=== PATIENT | male | born 1970 ===

== ENCOUNTER → 2020-04-11 | Outpatient (CLI) | payer SELFPAY ==
--- NOTE | 2020-04-11 13:24 | Diagnostic Imaging Report ---
PROCEDURE: CT abdomen and pelvis without contrast. TECHNIQUE: Multiple contiguous axial images were obtained through the abdomen and pelvis without the use of intravenous contrast. Auto Exposure Controls were utilized during the CT exam to meet ALARA standards for radiation dose reduction. INDICATION: Flank pain. FINDINGS: The heart size is normal. The lung bases are clear. The liver is normal in size without focal lesions. Gallbladder is unremarkable. There is no biliary ductal dilatation. Spleen is normal. Pancreas and adrenal glands are unremarkable. There are several nonobstructing stones in the left kidney. There are no stones in the right kidney. There is no evidence of obstructive uropathy. Aorta is nonaneurysmal. Bowel gas pattern is nonspecific. Appendix is normal. There is no free air. There is no ascites. There are no focal inflammatory changes. Bladder is normal. There is no pelvic mass or adenopathy. There are mild degenerative changes in the spine. IMPRESSION: Multiple nonobstructing stones in left kidney. There is, however no evidence of obstructive uropathy. No other acute abnormality in the abdomen or pelvis. Dictated by: Dictated on workstation # [id number]
== END ==
LOC: RAD 12:44
PROVIDERS: ATTEND Nurse Practitioner
DX: N20.0 Calculus of kidney (principal)
CPT/HCPCS: 74176